=== PATIENT | female | born 1970 | race Caucasian/White ===

== ENCOUNTER → 2021-10-13 | Outpatient (CLI) | payer OTHER | LOC: M WHC 08:05 | PROVIDERS: ATTEND Physician Assistant | DX: Z12.31 Encounter for screening mammogram for malignant neoplasm of breast (principal) ==

== ENCOUNTER → 2022-08-14 | Outpatient (REF) | payer OTHER ==
[2022-08-14 19:03] LABS: BACTERIA, URINE AUTO NEGATIVE (NEGATIVE); MUCUS, URINE SMALL (NEGATIVE); RBC, URINE AUTO 1 /HPF (0-3); SQUAMOUS EPITHELIAL CELL UR AU 2 /HPF (0-6); WBC, URINE AUTO 3 /HPF (0-3)
== END ==
LOC: M SMT 16:58
PROVIDERS: ATTEND Specialist
DX: R39.15 Urgency of urination (principal)
CPT/HCPCS: 51798; 81015; 87086; G0463

== ENCOUNTER → 2023-11-14 | Outpatient (CLI) | payer OTHER | LOC: M PLAIMG 11:10 | PROVIDERS: ATTEND Physician Assistant | DX: R91.8 Other nonspecific abnormal finding of lung field (principal) ==

== ENCOUNTER → 2024-10-07 | Outpatient (CLI) | payer OTHER | LOC: M WHC 07:39 | PROVIDERS: ATTEND Student in an Organized Health Care Education/Training Program | DX: Z12.31 Encounter for screening mammogram for malignant neoplasm of breast (principal); R92.333 Mammographic heterogeneous density, bilateral breasts ==

== ENCOUNTER → 2025-01-07 | Outpatient (CLI) | payer OTHER | LOC: M PLAIMG 08:05 | PROVIDERS: ATTEND Internal Medicine Pulmonary Disease | DX: R91.8 Other nonspecific abnormal finding of lung field (principal) ==